=== PATIENT | female | born 1960 | race Caucasian/White ===

== ENCOUNTER 2019-09-05 11:57 | Inpatient (IN) | payer MEDICARE, MEDICAID ==
[~2019-09-05] VITALS: Ht 160 cm; Wt 73.9 kg
[~2019-09-05 11:57] MED LIST: ATOR40TA70 PO; CHOL200059 PO; EZET10TA13 PO; FOLI-43 PO; FURO20TA4 PO; INSULIN PUMP SUBCUT; LISI10TA5 PO; OMEP40CA12 PO
[2019-09-05] MEDS ORDERED: ACETAMINOPHEN 325MG TABLET PO ONE (12:45)
[2019-09-05 14:03] LABS: BASOPHILS % 0.8 % (0.0-2.0); EOSINOPHILS % 1.9 % (0.0-5.0); HEMATOCRIT. 32.7 % (36.0-48.0); HEMOGLOBIN. 10.7 g/dL (12.0-16.0); LYMPHOCYTES % 12.3 % (20.0-50.0); MEAN CORPUSCULAR HEMOGLOBIN 28.7 pg (28.0-32.0); MEAN CORPUSCULAR VOLUME 87.4 fL (81.0-99.0); MEAN PLATELET VOLUME 7.2 fl (7.4-10.4); MONOCYTES % 7.6 % (2.0-8.0); NEUTROPHILS % 77.4 % (40.0-76.0); PLATELET 264 x1000/uL (130-400); RED BLOOD CELL COUNT 3.74 mill/uL (4.2-5.4); RED CELL DISTRIBUTION WIDTH 14.9 % (11.6-14.6)
[2019-09-05 14:10] LABS: PARTIAL THROMBOPLASTIN TIME 27.4 sec (23.4-31.0); PROTHROMBIN TIME 10.4 sec (9.6-11.0)
[2019-09-05] MEDS ORDERED: BUPIVACAINE/EPINEPH/PF 0.25%/0.0005 10ML ONE (17:37)
[2019-09-05] MEDS ORDERED: BACITRACIN 50,000 UNITS/VIAL ONE (17:38)
[2019-09-05] MEDS ORDERED: FENTANYL CITRATE/PF 50MCG/ML 2ML VIAL ONE (18:12)
[2019-09-05] MEDS ORDERED: MIDAZOLAM HCL 2 MG/2 ML VIAL ONE (18:12)
[2019-09-05] MEDS ORDERED: PROPOFOL 200MG/20ML VIAL IV ONE (18:12)
[2019-09-05] MEDS ORDERED: SUCCINYLCHOLINE CHLORIDE 200MG/10ML IV ONE (18:13)
[2019-09-05] MEDS ORDERED: LIDOCAINE HCL/PF 1% 10 MG/ML 5ML VIAL ONE (18:13)
[2019-09-05] MEDS ORDERED: ROCURONIUM BROMIDE 10MG/ML VIAL 5ML IV ONE (18:13)
[2019-09-05] MEDS ORDERED: GLYCOPYRROLATE 0.2 MG/ML 2ML VIAL ONE (18:41)
[2019-09-05] MEDS ORDERED: CEFAZOLIN SODIUM 1000MG/VIAL ONE (18:45)
[2019-09-05] MEDS ORDERED: DEXAMETHASONE 4MG/ML 1ML VIAL ONE (19:02)
[2019-09-05] MEDS ORDERED: ONDANSETRON HCL 4MG/2ML INJ ONE (19:02)
[2019-09-05] MEDS ORDERED: HYDRALAZINE 20MG/ML VIAL ONE (19:08)
[2019-09-05] MEDS ORDERED: IPRATROPIUM/ALBUTEROL 0.5-3(2.5)MG/3ML NEB HHN PRN (19:30)
[2019-09-05] MEDS ORDERED: ACETAMINOPHEN 325MG TABLET PO PRN (19:30)
[2019-09-05] MEDS ORDERED: CLONIDINE 0.1MG TABLET PO PRN (19:30)
[2019-09-05] MEDS ORDERED: ONDANSETRON HCL 4MG/2ML INJ IV PRN ×2 (19:30)
[2019-09-05] MEDS ORDERED: ZOLPIDEM TARTRATE 5MG TABLET PO PRN (19:30)
[2019-09-05] MEDS ORDERED: HYDROCODONE/ACETAMINOPHEN 5/325MG TABLET PO PRN ×3 (19:30)
[2019-09-05 20:00] VITALS: BP 125/44
[2019-09-05 20:30] VITALS: BP 125/44
[2019-09-05] MEDS ORDERED: ACETAMINOPHEN 325MG TABLET PO NR (23:00)
[2019-09-06] VITALS: BP 129/64
[2019-09-06] MEDS ORDERED: ASPI-1497 PO (00:09)
[2019-09-06 04:00] VITALS: BP 100/52
[2019-09-06 05:57] LABS: BASOPHILS % 0.8 % (0.0-2.0); EOSINOPHILS % 1.6 % (0.0-5.0); HEMATOCRIT. 26.5 % (36.0-48.0); HEMOGLOBIN. 8.8 g/dL (12.0-16.0); LYMPHOCYTES % 15.4 % (20.0-50.0); MEAN CORPUSCULAR VOLUME 87.1 fL (81.0-99.0); MONOCYTES % 10.7 % (2.0-8.0); NEUTROPHILS % 71.5 % (40.0-76.0); PLATELET 215 x1000/uL (130-400); RED BLOOD CELL COUNT 3.04 mill/uL (4.2-5.4); RED CELL DISTRIBUTION WIDTH 14.7 % (11.6-14.6)
[2019-09-06 08:00] VITALS: BP 114/52
[2019-09-06 12:00] VITALS: BP 113/65
[2019-09-06 13:19] VITALS: BP 113/65
== END 2019-09-06 16:47 | disposition home or self-care (01) | DRG 559 ==
LOC: ER 11:57 → EDBEDREQ 15:45 → ENRESERV 15:52 → 6EST 22:59 → ER 23:00
PROVIDERS: ADMIT Internal Medicine; ATTEND Internal Medicine
PROC: 0SWDXJZ Revision of Synthetic Substitute in Left Knee Joint, External Approach (ICD-10-PCS; principal; 2019-09-05)
DX: T84.023A Instability of internal left knee prosthesis, initial encounter (principal); N17.0 Acute kidney failure with tubular necrosis; D64.9 Anemia, unspecified; K21.9 Gastro-esophageal reflux disease without esophagitis; E78.5 Hyperlipidemia, unspecified; M21.162 Varus deformity, not elsewhere classified, left knee; N18.9 Chronic kidney disease, unspecified; I12.9 Hypertensive chronic kidney disease with stage 1 through stage 4 chronic kidney disease, or unspecified chronic kidney disease; Y83.1 Surgical operation with implant of artificial internal device as the cause of abnormal reaction of the patient, or of later complication, without mention of misadventure at the time of the procedure; E11.22 Type 2 diabetes mellitus with diabetic chronic kidney disease; H54.61 Unqualified visual loss, right eye, normal vision left eye; Z98.51 Tubal ligation status; Z85.3 Personal history of malignant neoplasm of breast; Y92.89 Other specified places as the place of occurrence of the external cause
CPT/HCPCS: 36415; 71045; 73560; 73562; 76000; 80048; 85025; 86850; 86900; 93005; 93971; 97110; 97116; 97162; 99285; J0171; J0330; J0360; J0690; J1100; J2250; J2405; J2704; J3010; J3490

== ENCOUNTER 2019-09-07 13:14 | Inpatient (IN) | payer MEDICARE, MEDICAID ==
[~2019-09-07] VITALS: Ht 162.6 cm; Wt 71.7 kg
[~2019-09-07 13:14] MED LIST changes: +ASPI-1497 PO
[2019-09-07] MEDS ORDERED: SODIUM CHLORIDE 0.9% 1,000 ML IV SCH (18:42)
[2019-09-07] MEDS ORDERED: ACETAMINOPHEN 325MG TABLET PO PRN ×2 (18:45→20:15)
[2019-09-07] MEDS ORDERED: CLONIDINE 0.1MG TABLET PO PRN (18:45)
[2019-09-07] MEDS ORDERED: MORPHINE SULFATE 2 MG/ML CPJ (NOT FOR IM USE) IV PRN ×2 (18:45→22:15)
[2019-09-07] MEDS ORDERED: IPRATROPIUM/ALBUTEROL 0.5-3(2.5)MG/3ML NEB HHN PRN (18:45)
[2019-09-07] MEDS ORDERED: ONDANSETRON HCL 4MG/2ML INJ IV PRN ×3 (18:45→22:15)
[2019-09-07 19:16] LABS: BASOPHILS % 1.1 % (0.0-2.0); HEMATOCRIT. 31.3 % (36.0-48.0); HEMOGLOBIN. 10.3 g/dL (12.0-16.0); LYMPHOCYTES % 16.4 % (20.0-50.0); MEAN CORPUSCULAR HEMOGLOBIN 29.1 pg (28.0-32.0); MEAN CORPUSCULAR VOLUME 88.6 fL (81.0-99.0); NEUTROPHILS % 71.5 % (40.0-76.0); PLATELET 253 x1000/uL (130-400); RED BLOOD CELL COUNT 3.53 mill/uL (4.2-5.4)
[2019-09-07 19:21] LABS: CHLORIDE 109 mEq/L (98-107)
[2019-09-07 19:23] LABS: PROTHROMBIN TIME 10.4 sec (9.6-11.0)
[2019-09-07 19:31] LABS: PHOSPHORUS 3.8 mg/dL (2.5-4.9)
[2019-09-07] MEDS ORDERED: ZOLPIDEM TARTRATE 5MG TABLET PO PRN (20:15)
[2019-09-07] MEDS ORDERED: HYDROCODONE/ACETAMINOPHEN 5/325MG TABLET PO PRN ×2 (20:15)
[2019-09-07] MEDS ORDERED: METOCLOPRAMIDE HCL 10MG/2ML VIAL ONE (20:54)
[2019-09-07] MEDS ORDERED: SUCCINYLCHOLINE CHLORIDE 200MG/10ML IV ONE (20:54)
[2019-09-07] MEDS ORDERED: ROCURONIUM BROMIDE 10MG/ML VIAL 5ML IV ONE (20:54)
[2019-09-07] MEDS ORDERED: PROPOFOL 200MG/20ML VIAL IV ONE ×2 (20:54→21:15)
[2019-09-07] MEDS ORDERED: MIDAZOLAM HCL 2 MG/2 ML VIAL ONE (20:54)
[2019-09-07] MEDS ORDERED: GLYCOPYRROLATE 0.2 MG/ML 2ML VIAL ONE (20:54)
[2019-09-07] MEDS ORDERED: FENTANYL CITRATE/PF 50MCG/ML 2ML VIAL ONE (20:54)
[2019-09-07] MEDS ORDERED: NEOSTIGMINE METHYLSULFATE 1MG/ML 10 ML VIAL ONE (20:54)
[2019-09-07] MEDS ORDERED: ONDANSETRON HCL 4MG/2ML INJ ONE (20:54)
[2019-09-07] MEDS ORDERED: SODIUM CHLORIDE 0.9% 1,000 ML IV ONE (22:01)
[2019-09-07] MEDS ORDERED: MEPERIDINE HCL/PF 25MG/ML CPJ IV PRN (22:15)
[2019-09-07] MEDS ORDERED: HYDROMORPHONE HCL/PF 2MG/ML CPJ IV PRN (22:15)
[2019-09-07 23:30] VITALS: BP 142/71
[2019-09-08] VITALS: BP_SYST 151; BP_SYST 153; BP_DIAS 58; BP_DIAS 76
[2019-09-08 04:00] VITALS: BP 153/58
[2019-09-08] MEDS ORDERED: ENOXAPARIN 40MG/0.4ML SYR SUBCUT SCH (09:00)
[2019-09-08] MEDS: ENOXAPARIN 30MG/0.3ML SYR SUBCUT SCH (09:06)
[2019-09-08] MEDS: FOLIC ACID 1MG TABLET PO SCH (13:28)
[2019-09-08] MEDS: LISINOPRIL 20MG TABLET PO SCH (13:29)
[2019-09-08] MEDS: FUROSEMIDE 20MG TABLET PO SCH (13:29)
[2019-09-08] MEDS: EZETIMIBE 10MG TABLET PO SCH (13:29)
[2019-09-08] MEDS ORDERED: SODIUM CHLORIDE 0.9% 1,000 ML IV SCH (18:00)
[2019-09-08 20:00] VITALS: BP 155/60
[2019-09-08] MEDS ORDERED: ATORVASTATIN CALCIUM 40MG TABLET PO SCH (21:00)
[2019-09-09] VITALS: BP 153/59
[2019-09-09 04:00] VITALS: BP 148/80
[2019-09-09] MEDS ORDERED: OMEPRAZOLE 20MG CAPSULE EXTENDED RELEASE PO SCH (07:20)
[2019-09-09 08:00] VITALS: BP 168/84
[2019-09-09] MEDS: EZETIMIBE 10MG TABLET PO SCH (09:02)
[2019-09-09] MEDS: FUROSEMIDE 20MG TABLET PO SCH (09:02)
[2019-09-09] MEDS: ENOXAPARIN 30MG/0.3ML SYR SUBCUT SCH (09:02)
[2019-09-09] MEDS: LISINOPRIL 20MG TABLET PO SCH (09:02)
[2019-09-09] MEDS: FOLIC ACID 1MG TABLET PO SCH (09:02)
[2019-09-09 12:00] VITALS: BP 115/69
[2019-09-09 12:01] VITALS: BP 115/69
== END 2019-09-09 14:15 | disposition home or self-care (01) | DRG 560 ==
LOC: ER 13:41 → 6EST 18:32 → ENRESERV 20:14
PROVIDERS: ADMIT Internal Medicine; ATTEND Internal Medicine
PROC: 0SSDXZZ Reposition Left Knee Joint, External Approach (ICD-10-PCS; principal; 2019-09-07)
PROC: 0S9D3ZZ Drainage of Left Knee Joint, Percutaneous Approach (ICD-10-PCS; 2019-09-07)
DX: T84.023A Instability of internal left knee prosthesis, initial encounter (principal); M25.062 Hemarthrosis, left knee; D63.8 Anemia in other chronic diseases classified elsewhere; E11.22 Type 2 diabetes mellitus with diabetic chronic kidney disease; M17.12 Unilateral primary osteoarthritis, left knee; Y79.2 Prosthetic and other implants, materials and accessory orthopedic devices associated with adverse incidents; I12.9 Hypertensive chronic kidney disease with stage 1 through stage 4 chronic kidney disease, or unspecified chronic kidney disease; E78.00 Pure hypercholesterolemia, unspecified; E78.5 Hyperlipidemia, unspecified; N18.9 Chronic kidney disease, unspecified; Z85.3 Personal history of malignant neoplasm of breast; Z89.412 Acquired absence of left great toe; Y92.89 Other specified places as the place of occurrence of the external cause; Z79.4 Long term (current) use of insulin; Z79.899 Other long term (current) drug therapy; Z79.82 Long term (current) use of aspirin
CPT/HCPCS: 36415; 73560; 76000; 80053; 80061; 83735; 84100; 84443; 85025; 87070; 87075; 97116; 97163; 97166; 99285; J0330; J1650; J2250; J2405; J2704; J2710; J2765; J3010; J3490; J7030

== ENCOUNTER 2019-10-14 13:47 | Emergency (ER) | payer MEDICARE, MEDICAID ==
[~2019-10-14] VITALS: Ht 157.5 cm; Wt 80.0 kg
[2019-10-14] MEDS ORDERED: ACETAMINOPHEN 325MG TABLET PO ONE (14:30)
[2019-10-14] MEDS ORDERED: BACITRACIN ZINC OINT UDPKT TOP ONE (15:45)
[2019-10-14 16:05] VITALS: BP 133/67
== END 2019-10-14 16:20 | disposition home or self-care (01) ==
LOC: ER 13:47
DX: M25.562 Pain in left knee (principal); Z46.89 Encounter for fitting and adjustment of other specified devices; E11.9 Type 2 diabetes mellitus without complications; I10 Essential (primary) hypertension; Z79.899 Other long term (current) drug therapy
CPT/HCPCS: 73590; 99283